=== PATIENT | male | born 2000 | race Two or more races ===

== ENCOUNTER 2024-09-22 06:45 | Emergency (ER) | payer MEDICAID, SELFPAY ==
[2024-09-22 06:46] VITALS: BMI 21.2
[2024-09-22 06:56] VITALS: BP 166/82; PULSE 83; RESP 17; TEMP 37.3; O2SAT 98
--- NOTE | 2024-09-22 07:14 | XR_ITS ---
Examination: CT abdomen and pelvis without contrast. Coronal 3-D reconstructions. Sagittal 2-D reconstructions. Date and time of exam:1025 [id number] hrs. Indications: Nausea vomiting diarrhea beginning 4 days ago CTDI: vol (mGy): 5.8. DLP: (mGycm): 312. Technique: Axial images of the abdomen have been obtained, 3 mm slice thickness Intravenous contrast material has not been administered. Low dose protocols were performed. One or more of the following dose reduction techniques were used; automated exposure control, adjustment of the mA and/or KV according to patient size, use of iterative reconstruction technique. Findings: No focal liver or splenic lesions No gallstones. No peripancreatic edema. No renal or ureteral calculi, no hydronephrosis. Aorta normal size. 10 mm fat-containing umbilical hernia. Normal appendix. No bowel obstruction. Scattered colonic diverticulosis. No diverticulitis. No prostatomegaly. Contracted urinary bladder. Adequate bone density Impression: No renal or ureteral calculi, no hydronephrosis. Normal appendix. No bowel obstruction diverticulitis or free air
[2024-09-22 08:17] LABS: Collection Type, Urine Voided; Squamous Epithelial Cell,Urine 0 /hpf (0-5)
[2024-09-22 08:32] LABS: Basophils % (Auto) 0 % (0-2.5); Eosinophils # (Auto) 0.1 Thou/mm3 (0.0-0.5); Eosinophils % (Auto) 1 % (0-10); Hemoglobin 15.6 g/dL (13.5-16.0); Immature Granulocytes % (Auto) 0 % (0-0); Immature Granulocytes Auto 0.02 Thou/mm3 (0.00-0.00); Lymphocytes # (Auto) 1.3 Thou/mm3 (1.0-4.8); Lymphocytes % (Auto) 15 % (10-50); Mean Corpuscular HGB Conc 34.7 g/dl (31.0-37.0); Mean Corpuscular Hemoglobin 29.6 pg (25.0-35.0); Mean Corpuscular Volume 85 fL (80-100); Monocytes # (Auto) 0.5 Thou/mm3 (0.0-0.8); Monocytes % (Auto) 6 % (0-12); Neutrophils # (Auto) 6.7 Thou/mm3 (1.8-7.7); Neutrophils % (Auto) 78 % (37-80); Nucleated Red Blood Cell % 0 /100 WBC (0); Platelet Count 389 Thou/mm3 (140-440); RDW Standard Deviation 40.6 fL (35.1-43.9); Red Blood Count 5.27 Miln/mm3 (4.50-5.90); White Blood Count 8.6 Thou/mm3 (3.8-10.6)
--- NOTE | 2024-09-22 08:43 | PD.EDABDPN ---
ED Abdominal Pain RME/HPI General Chief Complaint: Nausea/Vomiting/Diarrhea Stated complaint: VOMITING Time seen by provider: 09/22/24 06:59 Arrival date/time: 09/22/24 06:45 This is a case of 33-year-old male who came in in the emergency room due to abdominal pain on and off for 4 days associated with nausea vomiting nonprojectile nonbloody patient was seen in the clinic yesterday and was treated as GERD due to worsening of the nausea vomiting this patient decided to start consult here in the emergency room Limitations: no limitations Related Data Previous Rx's ?Medication ?Instructions ?Recorded ibuprofen 400 mg tablet 400 mg PO Q6H #20 tabs 08/13/18 tramadol 50 mg tablet 50 mg PO Q8H PRN pain #15 tabs 10/18/21 meclizine 50 mg tablet 50 mg PO BID PRN dizziness #20 tabs 01/14/23 amoxicillin 875 mg-potassium 1 tab PO BID 10 days #20 tabs 09/22/24 clavulanate 125 mg tablet dicyclomine 20 mg tablet 20 mg PO TID PRN abdominal pain 09/22/24 #20 tabs ondansetron HCl 4 mg tablet 4 mg PO Q8H PRN nausea and 09/22/24 vomiting #20 tabs Allergies Allergy/AdvReac Type Severity Reaction Status Date / Time No Known Allergies Allergy Verified 09/22/24 06:46 Review of Systems Review of Systems Systems Reviewed: All systems reviewed, normal except as documented Constitutional Constitutional: Reports system reviewed and no additional complaints, except as documented and Reports as per HPI ENT Ears, Nose, Mouth, and Throat: Denies dysphagia and Denies odynophagia Cardiovascular Cardiovascular: Reports system reviewed and no additional complaints, except as documented and Reports as per HPI Respiratory Respiratory: Reports system reviewed and no additional complaints, except as documented and Reports as per HPI Gastrointestinal Gastrointestinal: Reports system reviewed and no additional complaints, except as documented, Reports as per HPI, Reports abdominal pain, Denies belching, Denies bloating, Denies change in bowel habits, Denies change in stool character, Denies coffee ground emesis, Denies constipation, Denies cramping, Denies diarrhea, Denies dyspepsia, Denies dysphagia, Denies early satiety, Denies excessive flatus, Denies fecal incontinence, Denies heartburn, Denies hematemesis, Denies hematochezia, Denies loose stools, Denies melena, Reports nausea, Denies odynophagia, Denies tenesmus and Reports vomiting Genitourinary Genitourinary: Reports system reviewed and no additional complaints, except as documented and Reports as per HPI Musculoskeletal Musculoskeletal: Reports system reviewed and no additional complaints, except as documented and Reports as per HPI Neurologic Neurologic: Reports system reviewed and no additional complaints, except as documented and Reports as per HPI Past Medical History Past Medical History NEUROLOGIC: Negative Neurological Disorders CARDIAC: Negative Cardiac Disorders or Congestive Heart Failure RESPIRATORY: Negative Chronic Obstructive Pulmonary Disease (COPD) GASTROINTESTINAL: Negative Gastrointestinal Disorders GENITOURINARY: Negative Genitourinary Disorders or Renal Disease MUSCULOSKELETAL: Negative Musculoskeletal Disorders ENDOCRINE: Negative Endocrine Disorders, Diabetes Mellitus Type 1 or Diabetes Mellitus Type 2 HEMATOLOGIC: Negative Blood Disorders PSYCHO/SOCIAL: Negative Psychiatric Problems Social History SMOKING STATUS: Current some day smoker SECOND HAND EXPOSURE: No SUBSTANCE USE: does not use ED Exam General Limitations: Present no limitations General appearance: Present alert and in no apparent distress Head Head exam: Present atraumatic, normocephalic and normal inspection Eye Eye exam: Present normal appearance, PERRL and EOMI ENT ENT exam: Present normal exam, normal oropharynx and mucous membranes moist Neck Neck exam: Present normal inspection, full ROM and trachea midline; Absent tenderness, meningismus, lymphadenopathy or thyromegaly Chest Chest inspection: Present normal inspection and symmetric chest wall rise Respiratory Respiratory exam: Present normal lung sounds bilaterally; Absent respiratory distress, wheezes, stridor, accessory muscle use or prolonged expiratory phase Cardiovascular Cardiovascular exam: Present regular rate, normal rhythm and normal heart sounds; Absent bradycardia, tachycardia, irregular rhythm or systolic murmur Abdominal Exam Abdominal exam: Present soft, tenderness (Mild tenderness on epigastric area) and normal bowel sounds; Absent distention, guarding, rebound, rigidity, diminished bowel sounds, hyperactive bowel sounds, hypoactive bowel sounds, organomegaly, trauma, incision, psoas sign, obturator sign, heel tap sign, Estrada's sign, Rovsing's sign, tenderness at McBurney's Point, ascites, mass, bruit, pulsatile mass, hernia or scar Abdominal tenderness: Present epigastrium and mild Extremities Exam Extremities exam: Present normal inspection and full ROM Back Exam Back exam: Present normal inspection and full ROM Neurological Exam Neurological exam: Present alert, oriented X3, CN II-XII intact, normal gait and reflexes normal; Absent motor sensory deficit Psychiatric Psychiatric exam: Present normal affect and normal mood Skin Skin exam: Present warm, dry, intact and normal color Course Quality Measures none Orders Category Date Time Status CT abdomen pelvis wo con Stat Exams 09/22/24 07:14 Completed CBC Stat Lab 09/22/24 07:30 Completed CMP [Comprehensive Metabolic Panel] Stat Lab 09/22/24 07:30 Completed Lipase Stat Lab 09/22/24 07:30 Completed UA [Urinalysis] Stat Lab 09/22/24 07:40 Completed Famotidine [Pepcid] Med 09/22/24 08:46 Discontinued 20 mg PO X1 ONE Lidocaine 2% Viscous [Xylocaine 2% Viscous] Med 09/22/24 08:46 Discontinued 15 ml PO X1 ONE Ondansetron Odt [Zofran Odt] Med 09/22/24 08:46 Discontinued 8 mg PO X1 ONE mg Hyd/Al Hyd/Cecilio Susp [Maalox Susp] Med 09/22/24 08:46 Discontinued 30 ml PO X1 ONE Vital Signs Vital signs: Vital Signs Temperature 99.1 F 09/22/24 06:56 Pulse Rate 83 09/22/24 06:56 Respiratory Rate 17 09/22/24 06:56 Blood Pressure 166/82 H 09/22/24 06:56 Pulse Oximetry (%) 98 09/22/24 06:56 Oxygen Delivery Method Room Air 09/22/24 06:56 Patient is afebrile not tachycardic not tachypneic not hypoxic normal Abdominal Pain MDM MDM Narrative MDM Narrative:: This is a case of 33-year-old male who came in in the emergency room due to abdominal pain on and off for 4 days associated with nausea vomiting nonprojectile nonbloody patient was seen in the clinic yesterday and was treated as GERD due to worsening of the nausea vomiting this patient decided to start consult here in the emergency room physical examination patient is awake alert oriented not in distress not toxic looking patient is not tachycardic not tachypneic not hypoxic and afebrile abdominal exam is benign nonsurgical no guarding no rebound no rigidity mild tenderness on the epigastric area negative psoas negative straight or negative Rovsing's negative McBurney's negative Estrada sign negative CVA tenderness blood test showed no leukocytosis no anemia kidney and liver function is normal no electrolyte imbalance lipase is normal urinalysis is normal CT scan showed diverticulosis umbilical hernia gastritis and diverticulosis patient was discharged with Augmentin for diverticulosis Pepcid Zofran and omeprazole and Bentyl for pain at this point patient will be discharged home with stable condition Patient was discharged with comfortable condition walking with stable gait. Patient verbalized no further complains explained diagnosis and answered patient question. Patient is comfortable with the proposed management plan including the need to follow up with his/her primary care physician and any specialist if applicable Discussed patient for any urgent condition or worsening sx, He/She needed to go to emergency room immediately or call 911. Patient acknowledge the responsibility to follow up as instructed and to monitor her/his symptoms. For any persistence of the symptoms for more than 3-5 days return precaution advised. Discussed the result of the test and was given printed discharge instruction Patient data External records reviewed:: [facility] previous records Clinical information provided by:: patient Social determinants that could affect healthcare access:: none Patient has the following chronic illnesses:: None How is presenting disease/condition affected by chronic disease/condition?: no chronic disease Evaluation data The following diagnostics were reviewed and interpreted by me:: other (specify) Lab and/or radiology exams considered but not ordered:: Reviewed Interpretation Summary: Reviewed Medications / Prescriptions Medications or Prescriptions considered but not ordered:: Given Medication administrations:: Medication Administration History Discontinued Medications Al Hydrox/Mg Hydrox/Simethicone (Mg Hyd/Al Hyd/Cecilio (Maalox Reg) Susp 30 Ml Udc) 30 ml PO X1 ONE Stop: 09/22/24 08:47 Last Admin: 09/22/24 09:07 Dose: 30 ml Documented By: DONNA Famotidine (Famotidine 20 Mg Tablet) 20 mg PO X1 ONE Stop: 09/22/24 08:47 Last Admin: 09/22/24 09:07 Dose: 20 mg Documented By: DONNA Lidocaine HCl (Lidocaine Viscous 2% 15 Ml Udc) 15 ml PO X1 ONE Stop: 09/22/24 08:47 Last Admin: 09/22/24 09:07 Dose: 15 ml Documented By: DONNA Ondansetron HCl (Ondansetron Odt 4 Mg Tabrap) 8 mg PO X1 ONE; Protocol Stop: 09/22/24 08:47 Last Admin: 09/22/24 09:07 Dose: 8 mg Documented By: VL Given Consultations Consultation(s) initiated? (list below): No Diagnosis Differential diagnosis abdominal pain: abdominal pain, acute appendicitis, calculus of kidney, diverticulitis, gastroenteritis and pancreatitis Most likely diagnosis given after review of the tests above:: Gastritis Admission Indicated Admission indicated?: not indicated Explain why admission is indicated or not indicated:: Not indicated Admission Request Was there a request for admission?: No Admission Attestation Admission request attestation: Not indicated Disposition Plan Disposition Plan: Discharge Discharge Attestation Discharge Attestation: The patient and all family members were given an opportunity to ask questions and understood the discharge instructions. Discharge instructions specifically effects, indications for sooner follow up or return to the emergency department, and the expected course of current diagnosis. Patient condition: Stable Discharge Plan Plan Patient Disposition: HOME (Self Care) Prescriptions/Referrals Prescriptions/Med Rec: New ondansetron HCl 4 mg tablet 4 mg PO Q8H PRN (Reason: nausea and vomiting) Qty: 20 0RF dicyclomine 20 mg tablet 20 mg PO TID PRN (Reason: abdominal pain) Qty: 20 0RF amoxicillin-pot clavulanate 875-125 mg tablet 1 tab PO BID 10 Days Qty: 20 0RF No Action ibuprofen 400 mg tablet 400 mg PO Q6H Qty: 20 0RF tramadol 50 mg tablet 50 mg PO Q8H PRN (Reason: pain) Qty: 15 0RF meclizine 50 mg tablet 50 mg PO BID PRN (Reason: dizziness) Qty: 20 0RF Referrals: Evert Tarango MD [Primary Care Provider] - In 1 week Problem List Clinical Impression: Abdominal pain, Vomiting, Gastritis, Hernia, umbilical, Diverticulosis Patient/Caregiver Discharge Instructions Education Materials: Abdominal Pain, ED Gastritis (Adult), ED Hernia (Adult), ED Vomiting (Adult), ED Diverticulosis Additional Instructions: Follow-up with your primary care physician in 2 days for reevaluation and to be referred to sales program manager for further evaluation and treatment of gastritis umbilical hernia and diverticulosis recurrence persistent worsening symptoms or any emergent concern call 911 or go to the nearest emergency room avoid skipping of meals avoid fat fried high cholesterol food avoid spicy food avoid alcohol soda coffee Print Language: Togolese Stand Alone Forms: Eli Award Info., Patient Portal Info Letter PA/LEASING SALES CONSULTANT Supervising Physician PA/LEASING SALES CONSULTANT Supervising Physician: dr romano
[2024-09-22 08:44] LABS: Bilirubin,Urine Negative (Negative); Blood,Urine Negative (Negative); Clarity,Urine Clear (Clear/Hazy); Color,Urine Lt-Yellow (Lt Yel-Yel); Glucose, Urine Negative (Negative); Ketones,Urine Negative (Negative); Leukocyte Esterase,Urine Negative (Negative); Nitrite,Urine Negative (Negative); PH,Urine 6.5 (5.0-7.0); Protein,Urine Negative (Neg - Trace); RBC,Urine 1 /hpf (0-3); Specific Gravity,Urine 1.006 (1.001-1.035); Urobilinogen,Urine Negative mg/dL (0.0-1.0); WBC,Urine 1 /hpf (0-5)
[2024-09-22] MEDS: ONDANSETRON ODT 4 MG TABRAP 8 MG PO (09:07)
[2024-09-22] MEDS: MG HYD/AL HYD/SIME (Maalox Reg) SUSP 30 ML UDC PO (09:07)
[2024-09-22] MEDS: FAMOTIDINE 20 MG TABLET PO (09:07)
[2024-09-22] MEDS: LIDOCAINE VISCOUS 2% 15 ML UDC PO (09:07)
[2024-09-22 09:10] LABS: Alanine Aminotransferase 47 U/L (10-49); Albumin, Serum 4.9 gm/dL (3.5-5.0); Albumin/Globulin Ratio 1.8 (1.2-2.2); Alkaline Phosphatase 85 U/L (46-116); Anion Gap 9 (7-16); Aspartate Amino Transferase 30 U/L (0-34); BUN/Creatinine Ratio 9 Ratio (12-20); Bilirubin,Total 0.5 mg/dL (0.3-1.2); Blood Urea Nitrogen 9 mg/dL (9-23); Calcium 9.5 mg/dL (8.3-10.6); Calcium (Corrected) 9.5 mg/dL (8.5-10.1); Carbon Dioxide 26.4 mMol/L (20.0-31.0); Chloride 107 mMol/L (98-107); Globulin 2.7 gm/dL (2.3-3.5); Glucose 103 mg/dL (74-106); Lipase 29 U/L (12-53); Osmolality,Calculated 281 (275-295); Sodium 142 mMol/L (136-145); Total Protein 7.6 gm/dL (5.7-8.2); eGFR > 60 See Note
[2024-09-22 09:12] VITALS: BP 133/87; PULSE 82; RESP 19; TEMP 36.4; O2SAT 99
== END 2024-09-22 10:37 | disposition home or self-care (01) ==
PROVIDERS: Nurse Practitioner Family; Emergency Provider Emergency Medicine; PCP Family Medicine
DX: K29.70 Gastritis, unspecified, without bleeding (principal); K42.9 Umbilical hernia without obstruction or gangrene; K57.30 Diverticulosis of large intestine without perforation or abscess without bleeding
CPT/HCPCS: 36415; 74176; 80053; 81001; 83690; 85025; 99284; J3490; Q0162; A9270